=== PATIENT | male | born 1970 | race Native Hawaiian/Other Pacific Islander ===

== ENCOUNTER 2017-06-28 14:11 | Emergency (ER) | payer SELFPAY ==
[2017-06-28] MEDS ORDERED: NACL 0.9% 1000 ML 1,000 ML IV ONE ×2 (14:22→16:15)
[2017-06-28] MEDS ORDERED: ZOFRAN IV ONE (14:22)
[2017-06-28] MEDS ORDERED: TORADOL IV ONE (14:22)
[2017-06-28 15:06] LABS: Basophils % (Auto) 0.9 % (0.0-1.8); Eosinophils % (Auto) 0.9 % (0.0-4.3); Hematocrit 43.1 % (35.5-45.6); Hemoglobin 14.8 gm/dl (11.8-15.2); Mean Corpuscular HGB Conc 34 % (32-34); Mean Corpuscular Hemoglobin 33 pg (28-32); Mean Corpuscular Volume 96 fl (84-94); Platelet Count 202 K/mm3 (140-440); Red Blood Count 4.47 M/mm3 (3.65-5.03); Red Cell Distribution Width 13.7 % (13.2-15.2); White Blood Count 10.4 K/mm3 (4.5-11.0)
--- NOTE | 2017-06-28 15:10 | Cat Scan Report ---
FINAL REPORT PROCEDURE: CT ABDOMEN PELVIS WO CON TECHNIQUE: Computerized axial tomography of the abdomen and pelvis was performed without intravenous contrast. This study is performed without intravascular contrast material and its sensitivity for abdominal and pelvic pathology, including neoplasms, inflammation, abscess, free fluid, thrombosis, arterial dissection and infarction, is reduced compared with a contrast enhanced study. HISTORY: left flank pain COMPARISON: No prior studies are available for comparison. FINDINGS: Visualized lower thorax: Pulmonary emphysema with linear fibrotic change with possible subjacent small nodule. Minimal atelectasis anterior sulcus right middle lobe and lingula.. Liver: Moderately enlarged diffuse fatty infiltration liver Spleen: Normal size and attenuation. Gallbladder and biliary system: Distended gallbladder Pancreas: Mild diffuse pancreatic atrophy Adrenals: Normal. Kidneys: Moderate left hydronephrosis and hydroureter secondary to calculus in the proximal left ureter measuring 3 millimeters GI tract: No oral contrast. Normal caliber appendix. Lymph nodes and mesentery: Normal. Vasculature: Normal. Bladder: Normal. Reproductive organs: Normal. Peritoneum: No free fluid. Musculoskeletal structures: No significant abnormality. Other: N limited by motion artifact. IMPRESSION: Obstructive uropathy secondary to small calculus proximal left ureter.
[2017-06-28 15:22] LABS: Alanine Aminotransferase 27 units/L (7-56); Albumin 3.9 g/dL (3.9-5); Albumin/Globulin Ratio 1.3 %; Alkaline Phosphatase 49 units/L (35-129); Anion Gap 19 mmol/L; BUN/Creatinine Ratio 12.72; Blood Urea Nitrogen 14 mg/dL (9-20); Calcium 7.9 mg/dL (8.4-10.2); Carbon Dioxide 24 mmol/L (22-30); Chloride 101.7 mmol/L (98-107); Glucose 131 mg/dL (75-100); Lipase 38 units/L (13-60); Potassium 3.7 mmol/L (3.6-5.0); Sodium 141 mmol/L (137-145)
[2017-06-28] MEDS ORDERED: DILAUDID IV ONE ×2 (15:44→17:39)
--- NOTE | 2017-06-28 17:07 | Emergency Department Report ---
ED Abdominal Pain HPI - General Chief Complaint: Abdominal Pain Stated Complaint: ABDOMINAL/FLANK PAIN Time Seen by Provider: 06/28/17 15:42 Source: patient, fiber optic technician Mode of arrival: Ambulatory Limitations: No Limitations - History of Present Illness Initial Comments: 47-year-old male with no past medical history presents to hospital complaining of sudden onset of left flank and abdominal pain 2 hours. Pain is severe, rated 10/10 intensity, intermittent, worse with palpation. No alleviating factors reported. Positive nausea without vomiting. Mild discomfort with urination but denies hematuria. No previous history of kidney stones in the past. Severity scale (0 -10): 7 - Related Data Previous Rx's Medication Instructions Recorded Last Taken Type Ketorolac [Toradol] 10 mg PO Q6H PRN #20 tablet 06/28/17 Unknown Rx Ondansetron [Zofran Odt] 4 mg PO Q8HR PRN #20 tab.rapdis 06/28/17 Unknown Rx Tamsulosin [Flomax] 0.4 mg PO QDAY #73 cap 06/28/17 Unknown Rx oxyCODONE /ACETAMINOPHEN [Percocet 1 tab PO Q6HR PRN #20 tablet 06/28/17 Unknown Rx 5/325] Allergies Allergy/AdvReac Type Severity Reaction Status Date / Time No Known Allergies Allergy Unverified 06/28/17 14:20 ED Review of Systems ROS: Stated complaint: ABDOMINAL/FLANK PAIN Other details as noted in HPI Comment: All other systems reviewed and negative Other: Constitutional: No fevers chills Eyes: No eye pain visual changes ENT: No ear pain or throat pain Neck: Denies pain Respiratory: Denies cough wheezing shortness of breath Cardiovascular: Denies chest pain, palpitations, syncope GI: As per HPI : As per HPI Musculoskeletal: Denies back pain, joint swelling Skin: Denies rash, lesions, erythema Neurologic: Denies headache, numbness, weakness Psychiatric: Denies suicidal ideation, hallucinations ED Past Medical Hx - Past Medical History Previous Medical History?: No - Surgical History Past Surgical History?: No - Social History Smoking Status: Current Every Day Smoker Substance Use Type: Alcohol - Medications Home Medications: Home Medications Medication Instructions Recorded Confirmed Last Taken Type Ketorolac [Toradol] 10 mg PO Q6H PRN #20 tablet 06/28/17 Unknown Rx Ondansetron [Zofran Odt] 4 mg PO Q8HR PRN #20 tab.rapdis 06/28/17 Unknown Rx Tamsulosin [Flomax] 0.4 mg PO QDAY #73 cap 06/28/17 Unknown Rx oxyCODONE /ACETAMINOPHEN [Percocet 1 tab PO Q6HR PRN #20 tablet 06/28/17 Unknown Rx 5/325] ED Physical Exam - General Limitations: No Limitations - Other Other exam information: General: No limitations, patient is alert in no acute distress Head exam: Atraumatic, normocephalic Eyes exam: Normal appearance, pupils equal reactive to light, extraocular movements intact ENT: Moist mucous membrane, normal oropharynx Neck exam: Normal inspection, full range of motion, no meningismus nontender Respiratory exam: Clear to auscultation bilateral, no wheezes, rales, crackles Cardiovascular: Normal rate and rhythm, normal heart sounds Abdomen: Soft, nondistended, mild left mid abdominal tenderness, with normal bowel sounds, no rebound, or guarding Extremity: Full range of motion normal inspection no deformity Back: Normal Inspection, full range of motion, no tenderness Neurologic: Alert, oriented x3, cranial nerves intact, no motor or sensory deficit Psychiatric: normal affect, normal mood Skin: Warm, dry, intact ED Course Vital Signs 06/28/17 06/28/17 06/28/17 14:17 14:27 16:28 Temperature 97.7 F Pulse Rate 68 Respiratory 22 26 H 18 Rate Blood Pressure 159/87 Blood Pressure [Left] O2 Sat by Pulse 100 Oximetry 06/28/17 18:12 Temperature Pulse Rate 77 Respiratory 16 Rate Blood Pressure Blood Pressure 138/78 [Left] O2 Sat by Pulse 99 Oximetry - Reevaluation(s) Reevaluation #1: 06/28/17 18:33 Patient treated with Toradol, Zofran, normal saline, and Dilaudid total 1.5 mg in the ED with improvement in pain. No vomiting. ED Medical Decision Making - Lab Data Result diagrams: 06/28/17 14:51 06/28/17 14:51 Lab Results 06/28/17 06/28/17 06/28/17 Range/Units 14:51 14:51 18:04 WBC 10.4 (4.5-11.0) K/mm3 RBC 4.47 (3.65-5.03) M/mm3 Hgb 14.8 (11.8-15.2) gm/dl Hct 43.1 (35.5-45.6) % MCV 96 H (84-94) fl MCH 33 H (28-32) pg MCHC 34 (32-34) % RDW 13.7 (13.2-15.2) % Plt Count 202 (140-440) K/mm3 Lymph % (Auto) 16.3 (13.4-35.0) % [place] % (Auto) 7.1 (0.0-7.3) % Eos % (Auto) 0.9 (0.0-4.3) % Baso % (Auto) 0.9 (0.0-1.8) % Lymph # 1.7 (1.2-5.4) K/mm3 Garden # 0.7 (0.0-0.8) K/mm3 Eos # 0.1 (0.0-0.4) K/mm3 Baso # 0.1 (0.0-0.1) K/mm3 Seg Neutrophils % 74.8 H (40.0-70.0) % Seg Neutrophils # 7.8 H (1.8-7.7) K/mm3 Sodium 141 (137-145) mmol/L Potassium 3.7 (3.6-5.0) mmol/L Chloride 101.7 (98-107) mmol/L Carbon Dioxide 24 (22-30) mmol/L Anion Gap 19 mmol/L BUN 14 (9-20) mg/dL Creatinine 1.1 (0.8-1.5) mg/dL Estimated GFR > 60 ml/min BUN/Creatinine Ratio 12.72 % Glucose 131 H (75-100) mg/dL Calcium 7.9 L (8.4-10.2) mg/dL Total Bilirubin 0.40 (0.1-1.2) mg/dL AST 30 (5-40) units/L ALT 27 (7-56) units/L Alkaline Phosphatase 49 (35-129) units/L Total Protein 7.0 (6.3-8.2) g/dL Albumin 3.9 (3.9-5) g/dL Albumin/Globulin Ratio 1.3 % Lipase 38 (13-60) units/L Urine Color Yellow (Yellow) Urine Turbidity Turbid (Clear) Urine pH 5.0 (5.0-7.0) Ur Specific [place] 1.018 (1.003-1.030) Urine Protein <15 mg/dl (Negative) mg/dL Urine Glucose (UA) Neg (Negative) mg/dL Urine Ketones Neg (Negative) mg/dL Urine Blood Lg (Negative) Urine Nitrite Neg (Negative) Urine Bilirubin Neg (Negative) Urine Urobilinogen < 2.0 (<2.0) mg/dL Ur Leukocyte Esterase Neg (Negative) Urine WBC (Auto) 6.0 (0.0-6.0) /HPF Urine RBC (Auto) 44.0 (0.0-6.0) /HPF Uric Acid Crystals 3+ Urine Mucus 3+ /HPF - Radiology Data Radiology results: report reviewed CT abdomen and pelvis noncontrast: Obstructive uropathy secondary to small calculus proximal left ureter. 3 mm in size. Moderate left hydronephrosis and hydroureter - Medical Decision Making Labwork unremarkable. UA negative for infection. Patient with stitches home with medications for renal colic and urology follow-up will be encouraged. - Differential Diagnosis renal colic, UTI, dissection, diverticulitis Critical Care Time: No Critical care attestation.: If time is entered above; I have spent that time in minutes in the direct care of this critically ill patient, excluding procedure time. ED Disposition Clinical Impression: Renal colic on left side Disposition: DC-01 TO HOME OR SELFCARE Is pt being admited?: No Does the pt Need Aspirin: No Condition: Stable Instructions: Kidney Stones (ED) Additional Instructions: Take medications as prescribed. Please follow-up with the urologist provided with a urologist of your choice. Please return if symptoms worsen. You have been provided a copy of the CAT scan for follow-up. [place] los medicamentos segn lo prescrito. Por favor, yary un seguimiento con el urlogo proporcionado con un urlogo de szymanski eleccin. Por favor regrese si los s ntomas empeoran. Se le logan proporcionado gunner copia del TAC para el seguimiento. Prescriptions: Ketorolac [Toradol] 10 mg PO Q6H PRN #20 tablet PRN Reason: Pain Ondansetron [Zofran Odt] 4 mg PO Q8HR PRN #20 tab.rapdis PRN Reason: Nausea And Vomiting oxyCODONE /ACETAMINOPHEN [Percocet 5/325] 1 tab PO Q6HR PRN #20 tablet PRN Reason: Pain Tamsulosin [Flomax] 0.4 mg PO QDAY #73 cap Referrals: SUE PRECIADO MD [Staff Physician] - 3-5 Days Time of Disposition: 18:33
[2017-06-28 18:14] VITALS: BP 138/78
[2017-06-28 18:25] LABS: Bilirubin,Urine NEG (Negative); Blood,Urine LG (Negative); Ketones,Urine NEG (Negative); Leukocyte Esterase,Urine NEG (Negative); Mucus,Urine 3+ /HPF; Nitrite,Urine NEG (Negative); Protein,Urine <15 mg/dL mg/dL (Negative); Uric Acid Crystals,Urine 3+; Urobilinogen,Urine < 2.0 mg/dL (<2.0)
== END 2017-06-28 19:30 | disposition home or self-care (01) ==
LOC: ED 14:11
DX: N23 Unspecified renal colic (principal); F17.200 Nicotine dependence, unspecified, uncomplicated
CPT/HCPCS: 36415; 74176; 80053; 81001; 83690; 85025; 96361; 96374; 96375; 96376; 99284; J1170; J1885; J2405; J7030

== ENCOUNTER 2018-01-26 20:44 | Emergency (ER) | payer SELFPAY ==
[2018-01-26 22:23] LABS: Basophils # (Auto) 0.1 K/mm3 (0.0-0.1); Basophils % (Auto) 0.6 % (0.0-1.8); Eosinophils # (Auto) 0.2 K/mm3 (0.0-0.4); Eosinophils % (Auto) 1.2 % (0.0-4.3); Hemoglobin 15.9 gm/dl (11.8-15.2); Lymphocytes # (Auto) 2.1 K/mm3 (1.2-5.4); Mean Corpuscular HGB Conc 34 % (32-34); Mean Corpuscular Hemoglobin 32 pg (28-32); Mean Corpuscular Volume 96 fl (84-94); Monocytes # (Auto) 0.8 K/mm3 (0.0-0.8); Monocytes % (Auto) 6.1 % (0.0-7.3); Platelet Count 239 K/mm3 (140-440); Red Blood Count 4.93 M/mm3 (3.65-5.03); Red Cell Distribution Width 13.5 % (13.2-15.2)
[2018-01-26 22:39] LABS: Alanine Aminotransferase 18 units/L (7-56); Albumin 4.4 g/dL (3.9-5); BUN/Creatinine Ratio 19; Blood Urea Nitrogen 19 mg/dL (9-20); Calcium 8.7 mg/dL (8.4-10.2); Hemolysis Index 7; Lipase 48 units/L (13-60)
--- NOTE | 2018-01-27 00:50 | Cat Scan Report ---
FINAL REPORT EXAM: CT ABDOMEN PELVIS WO CON HISTORY: LT FLANK PAIN AND RUQ PAIN TECHNIQUE: Routine axial imaging was obtained of the abdomen and pelvis without oral or IV contrast. Sagittal coronal reconstructions were reviewed. Comparison is made to the study of 06/28/2017. FINDINGS: The lung bases reveal nonspecific interstitial changes bilaterally. Pleural fluid is not seen. The gallbladder is normal in size and shows no evidence of stones or inflammatory changes. The liver and biliary tree appear normal. The pancreas, spleen, and adrenal glands appear normal. The kidneys reveal moderate left-sided hydronephrosis secondary to a partially obstructing 5 mm stone in the proximal left ureter just below renal pelvis. There are additional small nonobstructing stones in left kidney measure up to 3 millimeters in diameter. The right kidney is unremarkable. There calcification of the abdominal aorta. The appendix is not enlarged. The bowel loops otherwise are normal in caliber. There are few uncomplicated diverticula in the descending colon. There is no evidence of free fluid or adenopathy. In the pelvis the prostate gland and bladder appear normal. The skeletal structures do not show any acute changes IMPRESSION: Moderate left-sided hydronephrosis secondary to a partially obstructing 5 mm stone in the proximal left ureter just below the renal pelvis. Additional small nonobstructing stones in the left kidney. Nonspecific interstitial changes in both lung bases. Several uncomplicated diverticula in the left side of the colon.
[2018-01-27] MEDS ORDERED: MORPHINE IV ONE (01:33)
[2018-01-27] MEDS ORDERED: TORADOL IV ONE (01:33)
[2018-01-27] MEDS ORDERED: ZOFRAN IV ONE (01:33)
[2018-01-27] MEDS ORDERED: NACL 0.9% 1000 ML 1,000 ML IV ONE (01:33)
[2018-01-27 02:01] VITALS: BP 143/85
[2018-01-27 02:55] LABS: Bilirubin,Urine NEG (Negative); Blood,Urine LG (Negative); Color,Urine Yellow (Yellow); Mucus,Urine FEW /HPF; Protein,Urine <15 mg/dL mg/dL (Negative); Urobilinogen,Urine < 2.0 mg/dL (<2.0)
--- NOTE | 2018-01-27 03:00 | Emergency Department Report ---
ED Male HPI - General Chief complaint: Abdominal Pain Stated complaint: KIDNEY/STOMACH PAIN Time Seen by Provider: 01/27/18 01:29 Source: patient Mode of arrival: Ambulatory Limitations: No Limitations - History of Present Illness Initial comments: Patient is a 47-year-old male whose presenting with left flank pain. Patient states that he has been having pain for the past 24 hours left flank with radiation into the groin. Patient states that he may have seen a small amount of blood in the urine. Patient is also had nausea vomiting. Patient states pain is 10 out of 10 in severity. Patient has a history kidney stones on the right in May 2017 was never had pain on the left of his magnitude. - Related Data Previous Rx's Medication Instructions Recorded Last Taken Type Ketorolac [Toradol] 10 mg PO Q6H PRN #20 tablet 06/28/17 Unknown Rx Ondansetron [Zofran Odt] 4 mg PO Q8HR PRN #20 tab.rapdis 06/28/17 Unknown Rx Tamsulosin [Flomax] 0.4 mg PO QDAY #73 cap 06/28/17 Unknown Rx oxyCODONE /ACETAMINOPHEN [Percocet 1 tab PO Q6HR PRN #20 tablet 06/28/17 Unknown Rx 5/325] HYDROcodone/ACETAMINOPHEN [[place] 1 each PO Q6HR PRN #15 tablet 01/27/18 Unknown Rx 10-325 Tablet] Ketorolac [Toradol] 10 mg PO Q6H PRN #20 tablet 01/27/18 Unknown Rx Ondansetron [Zofran Odt] 4 mg PO Q8HR #10 tab.rapdis 01/27/18 Unknown Rx Allergies Allergy/AdvReac Type Severity Reaction Status Date / Time No Known Allergies Allergy Unverified 06/28/17 14:20 ED Review of Systems ROS: Stated complaint: KIDNEY/STOMACH PAIN Other details as noted in HPI Comment: All other systems reviewed and negative ED Past Medical Hx - Past Medical History Additional medical history: hydronephrosis-r/t kidney stone - Social History Smoking Status: Never Smoker Substance Use Type: None - Medications Home Medications: Home Medications Medication Instructions Recorded Confirmed Last Taken Type Ketorolac [Toradol] 10 mg PO Q6H PRN #20 tablet 06/28/17 Unknown Rx Ondansetron [Zofran Odt] 4 mg PO Q8HR PRN #20 tab.rapdis 06/28/17 Unknown Rx Tamsulosin [Flomax] 0.4 mg PO QDAY #73 cap 06/28/17 Unknown Rx oxyCODONE /ACETAMINOPHEN [Percocet 1 tab PO Q6HR PRN #20 tablet 06/28/17 Unknown Rx 5/325] HYDROcodone/ACETAMINOPHEN [[place] 1 each PO Q6HR PRN #15 tablet 01/27/18 Unknown Rx 10-325 Tablet] Ketorolac [Toradol] 10 mg PO Q6H PRN #20 tablet 01/27/18 Unknown Rx Ondansetron [Zofran Odt] 4 mg PO Q8HR #10 tab.rapdis 01/27/18 Unknown Rx ED Physical Exam - General Limitations: No Limitations General appearance: alert, in distress - Head Head exam: Present: atraumatic, normocephalic - Eye Eye exam: Present: normal appearance - ENT ENT exam: Present: mucous membranes moist - Neck Neck exam: Present: normal inspection - Respiratory Respiratory exam: Present: normal lung sounds bilaterally. Absent: respiratory distress, wheezes, rales, rhonchi - Cardiovascular Cardiovascular Exam: Present: regular rate, normal rhythm. Absent: systolic murmur, diastolic murmur, rubs, gallop - GI/Abdominal GI/Abdominal exam: Present: soft, normal bowel sounds. Absent: distended, tenderness, guarding, rebound - Rectal Rectal exam: Present: deferred - Extremities Exam Extremities exam: Present: normal inspection - Back Exam Back exam: Present: normal inspection, CVA tenderness (L) - Neurological Exam Neurological exam: Present: alert, oriented X3 - Psychiatric Psychiatric exam: Present: normal affect, normal mood - Skin Skin exam: Present: warm, dry, intact, normal color. Absent: rash ED Course Vital Signs 01/26/18 01/26/18 01/27/18 21:21 21:30 01:59 Temperature 98.1 F 98.1 F Pulse Rate 60 64 Respiratory 18 18 20 Rate Blood Pressure 132/85 132/83 Blood Pressure [Right] O2 Sat by Pulse 96 97 Oximetry 01/27/18 01/27/18 02:00 02:01 Temperature 97.9 F Pulse Rate 64 Respiratory 20 20 Rate Blood Pressure Blood Pressure 143/85 [Right] O2 Sat by Pulse 96 96 Oximetry ED Medical Decision Making - Lab Data Result diagrams: 01/26/18 22:15 01/26/18 22:15 - Radiology Data Radiology results: report reviewed She has a 5 mm partially obstructing stone in the proximal left ureter causing mild/moderate hydronephrosis - Medical Decision Making She was given morphine Toradol Zofran for pain. Patient's pain was improved. Patient took his last Percocet today trying to help with the pain patient is sent home with exercise stress Vicodin since he says Percocet is not helping. Patient be discharged home Critical care attestation.: If time is entered above; I have spent that time in minutes in the direct care of this critically ill patient, excluding procedure time. ED Disposition Clinical Impression: Hydronephrosis, Kidney stone on left side Disposition: - TO HOME OR SELFCARE Is pt being admited?: No Does the pt Need Aspirin: No Condition: Fair Instructions: Kidney Stones (ED) Prescriptions: HYDROcodone/ACETAMINOPHEN [[place] 10-325 Tablet] 1 each PO Q6HR PRN #15 tablet PRN Reason: Pain Ketorolac [Toradol] 10 mg PO Q6H PRN #20 tablet PRN Reason: Pain Ondansetron [Zofran Odt] 4 mg PO Q8HR #10 tab.rapdis Referrals: MELLY ORDOÑEZ MD [Staff Physician] - 3-5 Days
[2018-01-27 03:20] LABS: RBC,Urine > 182.0 /HPF (0.0-6.0)
== END 2018-01-27 07:00 | disposition home or self-care (01) ==
LOC: ED 20:44
DX: N13.2 Hydronephrosis with renal and ureteral calculous obstruction (principal)
CPT/HCPCS: 36415; 74176; 80053; 81001; 83690; 85025; 96361; 96374; 96375; 99284; J1885; J2270; J2405; J7030